=== PATIENT | male | born 2000 | race Caucasian/White ===

== ENCOUNTER 2022-12-14 09:24 | Emergency (ER) | payer SELFPAY ==
[~2022-12-14] VITALS: Ht 175.3 cm; Wt 136.1 kg
[2022-12-14 09:37] VITALS: BP 128/79
--- NOTE | 2022-12-14 09:40 | NUR ---
DENIES VISUAL DISTURBANCE. C/O HEADACHE. ONSET OF S/S 2 DAYS AGO.
[2022-12-14] MEDS ORDERED: POLY10DR5 OP (10:00)
--- NOTE | 2022-12-14 10:50 | NUR ---
VISUAL EXAM COMPLETE BY JUANIS. VERBAL ACI GIVEN. PT AGREES W/ D/C PLAN. VERB UNDERSTANDING OF ACI. VSS. NAD.
[2022-12-14] MEDS: TETRACAINE HCL/PF 0.5% OPTH 4 ML BTL OP ONE ×2 (10:58→10:59)
[2022-12-14] MEDS: FLUORESCEIN OPTH STRIP 1 MG OP ONE ×2 (10:58→10:59)
== END 2022-12-14 10:50 | disposition home or self-care (01) ==
LOC: MED 09:24
DX: H53.141 Visual discomfort, right eye (principal)
CPT/HCPCS: 99283